=== PATIENT | female | born 1945 | race Hispanic/Latino ===

== ENCOUNTER 2017-09-15 10:54 | Observation (INO) | payer OTHER ==
[~2017-09-15] VITALS: Ht 162.6 cm; Wt 107.4 kg
[~2017-09-15 10:54] MED LIST: CANA1TAB PO; GLIP-162 PO; HYDR25TA PO; INSU100I21 SQ; LISI40TA4 PO; MECL-129 PO; METO50TA18 PO; SIMV5TAB6 PO
[2017-09-15 11:23] LABS: BASOPHILS % (AUTO) 0.9 % (0.0-5.0); EOSINOPHILS % (AUTO) 2.6 % (0.0-8.0); HEMATOCRIT 43.1 % (36-48); LYMPHOCYTES % (AUTO) 22.2 % (21.0-51.0); MEAN CORPUSCULAR HEMOGLOBIN 31.6 pg (27.0-33.0); MEAN CORPUSCULAR HGB CONC 34.7 g/dL (32.0-36.0); MEAN CORPUSCULAR VOLUME 91.1 fL (79-99); MONOCYTES % (AUTO) 6.4 % (3.0-13.0); NEUTROPHILS % (AUTO) 67.9 % (40.0-77.0); PLATELET COUNT (AUTO) 158 K/uL (130-400); RED BLOOD CELL COUNT(AUTO) 4.73 MIL/uL (4.00-5.50); WHITE BLOOD COUNT (AUTO) 8.4 K/uL (4.8-10.8)
[2017-09-15 11:45] LABS: INR 1.01 (0.85-1.15); PARTIAL THROMBOPLASTIN TIME 27.3 SEC (26.3-35.5); PROTHROMBIN TIME 10.6 SEC (9.6-11.6)
[2017-09-15 11:46] LABS: CREATINE KINASE MB 0.7 ng/mL (0.5-3.6)
[2017-09-15] MEDS ORDERED: CLOPIDOGREL BISULFATE 75 MG TAB ONE (12:08)
[2017-09-15 16:00] VITALS: BP 139/74
[2017-09-15] MEDS ORDERED: FURO20TA6 PO (16:05)
[2017-09-15] MEDS: INSULIN R PO SS1 SQ SCH ×2 (17:14→20:24)
[2017-09-15] MEDS: ENOXAPARIN SODIUM 40 MG/0.4 ML SYRINGE SQ SCH (17:24)
[2017-09-15 19:00] VITALS: BP 134/83
[2017-09-15] MEDS: METOPROLOL TARTRATE 50 MG TAB PO SCH (19:57)
[2017-09-15] MEDS: SIMVASTATIN 5 MG PO SCH (19:59)
[2017-09-15] MEDS: INSULIN GLARGINE 100 UNITS/ML 10 ML VIAL SQ SCH (20:23)
[2017-09-15] MEDS ORDERED: METOPROLOL TARTRATE 50 MG TAB PO SCH (21:00)
[2017-09-15] MEDS ORDERED: INSULIN DETEMIR 25 UNIT SQ SCH (21:00)
[2017-09-15] MEDS ORDERED: NON-FORMULARY MEDICATION 1 EACH (Simvastatin 5 MG) PO SCH (21:00)
[2017-09-16] VITALS (8 sets, daily range): BP systolic 100–137; BP diastolic 47–80
[2017-09-16 04:11] LABS: HEMATOCRIT 41.3 % (36-48); MEAN CORPUSCULAR HEMOGLOBIN 32.6 pg (27.0-33.0); MEAN CORPUSCULAR HGB CONC 35.5 g/dL (32.0-36.0); PLATELET COUNT (AUTO) 171 K/uL (130-400); RED BLOOD CELL COUNT(AUTO) 4.49 MIL/uL (4.00-5.50); RED CELL DISTRIBUTION WIDTH 13.7 % (11.0-15.5); WHITE BLOOD COUNT (AUTO) 8.5 K/uL (4.8-10.8)
[2017-09-16 04:14] LABS: CREATININE 0.8 mg/dL (0.5-1.5); POTASSIUM 3.2 mmol/L (3.5-5.1)
[2017-09-16 04:26] LABS: B-TYPE NATRIURETIC PEPTIDE 163 pg/mL (0-100)
[2017-09-16] MEDS: INSULIN R PO SS1 SQ SCH ×4 (06:01→20:52)
[2017-09-16] MEDS ORDERED: FUROSEMIDE 20 MG TABLET PO SCH (09:00)
[2017-09-16] MEDS ORDERED: POTASSIUM CHLORIDE 20MEQ/100ML 100 ML IV PRN (09:00)
[2017-09-16] MEDS ORDERED: POTASSIUM CHLORIDE 10% ELIXIR 20 MEQ/15 ML UDCUP PO PRN (09:00)
[2017-09-16] MEDS ORDERED: HYDROCHLOROTHIAZIDE 25 MG TABLET PO SCH (09:00)
[2017-09-16] MEDS ORDERED: GLIPIZIDE XL 5MG TAB PO SCH (09:00)
[2017-09-16] MEDS ORDERED: LIDOCAINE HCL-MPF 1% 2ML VIAL IVP PRN (09:00)
[2017-09-16] MEDS ORDERED: LISINOPRIL 40 MG TABLET PO SCH (09:00)
[2017-09-16] MEDS: LISINOPRIL 40 MG TABLET PO SCH (09:04)
[2017-09-16] MEDS: METOPROLOL TARTRATE 50 MG TAB PO SCH ×2 (09:04→20:45)
[2017-09-16] MEDS: FUROSEMIDE 20 MG TABLET PO SCH (09:04)
[2017-09-16] MEDS: GLIPIZIDE XL 5MG TAB PO SCH (09:04)
[2017-09-16] MEDS: ENOXAPARIN SODIUM 40 MG/0.4 ML SYRINGE SQ SCH (09:05)
[2017-09-16] MEDS ORDERED: FUROSEMIDE 10 MG/ML 2ML VIAL IV SCH (10:45)
[2017-09-16] MEDS ORDERED: POTASSIUM CHLORIDE 20 MEQ ERTAB PO SCH (10:45)
[2017-09-16] MEDS: SIMVASTATIN 5 MG PO SCH (20:45)
[2017-09-16] MEDS: INSULIN GLARGINE 100 UNITS/ML 10 ML VIAL SQ SCH (20:50)
[2017-09-17] VITALS: BP 122/75
[2017-09-17 04:00] VITALS: BP 132/57
[2017-09-17 05:19] LABS: CREATININE 0.8 mg/dL (0.5-1.5); POTASSIUM 3.4 mmol/L (3.5-5.1)
[2017-09-17] MEDS: INSULIN R PO SS1 SQ SCH (06:10)
[2017-09-17 08:00] VITALS: BP 112/70
[2017-09-17] MEDS ORDERED: RIVA20TA PO (08:09)
[2017-09-17] MEDS ORDERED: RIVAROXABAN 20 MG TABLET PO SCH (09:00)
[2017-09-17] MEDS: LISINOPRIL 40 MG TABLET PO SCH (11:03)
[2017-09-17] MEDS: FUROSEMIDE 20 MG TABLET PO SCH (11:03)
[2017-09-17] MEDS: METOPROLOL TARTRATE 50 MG TAB PO SCH (11:03)
[2017-09-17] MEDS: GLIPIZIDE XL 5MG TAB PO SCH (11:12)
[2017-09-17] MEDS: POTASSIUM CHLORIDE 20 MEQ ERTAB PO PRN ×2 (11:22→14:19)
[2017-09-17 12:40] VITALS: BP 116/69
[2017-09-17 16:19] VITALS: BP 110/63
== END 2017-09-17 17:10 | disposition home or self-care (01) ==
LOC: EDH 10:54 → EDHIP 14:25 → INTOOBSV 14:25 → 3AH 15:37
PROVIDERS: ADMIT Internal Medicine; ATTEND Internal Medicine
DX: I48.91 Unspecified atrial fibrillation (principal); M16.11 Unilateral primary osteoarthritis, right hip; E11.65 Type 2 diabetes mellitus with hyperglycemia; E66.01 Morbid (severe) obesity due to excess calories; E11.9 Type 2 diabetes mellitus without complications; Z68.41 Body mass index [BMI] 40.0-44.9, adult; I10 Essential (primary) hypertension; E78.5 Hyperlipidemia, unspecified; Z82.49 Family history of ischemic heart disease and other diseases of the circulatory system; Z90.49 Acquired absence of other specified parts of digestive tract; Z88.6 Allergy status to analgesic agent; Z96.653 Presence of artificial knee joint, bilateral; Z90.710 Acquired absence of both cervix and uterus; Z83.3 Family history of diabetes mellitus; Z79.899 Other long term (current) drug therapy; Z79.01 Long term (current) use of anticoagulants; E87.6 Hypokalemia
CPT/HCPCS: 36415 ×3; 71045; 80048 ×2; 82550; 82553; 82948 ×9; 83880; 84484; 85025; 85027; 85610; 85730; 93005; 93306; 96372 ×2; 96374; 97039; 97116; 97161; 99285; G0378 ×51; G8978; G8979; G8980; G8981; G8982; G8983; J1650 ×2; J1815 ×4; J1940

== ENCOUNTER 2019-02-26 18:09 | Observation (INO) | payer OTHER ==
[~2019-02-26] VITALS: Ht 152.4 cm; Wt 106.0 kg
[~2019-02-26 18:09] MED LIST changes: -CANA1TAB PO; -GLIP-162 PO; +GLIP5TAB11 PO; -INSU100I21 SQ; -MECL-129 PO; +METF500S7 PO; +METO50 PO; -METO50TA18 PO; +RIVA20TA PO; +SIMV5TAB58 PO; -SIMV5TAB6 PO; +TOLT2CAP21 PO
[2019-02-26 19:01] LABS: BASOPHILS % (AUTO) 0.6 % (0.0-5.0); EOSINOPHILS % (AUTO) 2.4 % (0.0-8.0); HEMATOCRIT 38.4 % (36-48); LYMPHOCYTES % (AUTO) 26.5 % (21.0-51.0); MEAN CORPUSCULAR HEMOGLOBIN 29.6 pg (27.0-33.0); MEAN CORPUSCULAR HGB CONC 33.2 g/dL (32.0-36.0); MONOCYTES % (AUTO) 7.5 % (3.0-13.0); PLATELET COUNT (AUTO) 123 K/uL (130-400); RED BLOOD CELL COUNT(AUTO) 4.31 MIL/uL (4.00-5.50); RED CELL DISTRIBUTION WIDTH 16.8 % (11.0-15.5); WHITE BLOOD COUNT (AUTO) 7.2 K/uL (4.8-10.8)
[2019-02-26 19:15] LABS: INR 1.48 (0.85-1.15); PARTIAL THROMBOPLASTIN TIME 40.4 SEC (26.3-35.5); PROTHROMBIN TIME 15.3 SEC (9.6-11.6)
[2019-02-26 19:18] LABS: CREATININE 0.9 mg/dL (0.5-1.5); POTASSIUM 3.5 mmol/L (3.5-5.1)
[2019-02-26 19:29] LABS: ALBUMIN 2.9 g/dL (3.5-5.0); BILIRUBIN,TOTAL 0.4 mg/dL (0.2-1.0); TOTAL PROTEIN, SERUM 7.8 g/dL (6.0-8.3)
[2019-02-26] MEDS ORDERED: ONDANSETRON HCL 4 MG/2 ML VIAL IVP PRN (20:45)
[2019-02-26] MEDS ORDERED: PANTOPRAZOLE 40 MG/VIAL IVP SCH (20:45)
[2019-02-26] MEDS ORDERED: ACETAMINOPHEN 325 MG TAB PO PRN (20:45)
[2019-02-26] MEDS: SODIUM CHLORIDE 0.9% 1000ML 1,000 ML IV SCH (20:45)
[2019-02-26] MEDS ORDERED: SODIUM CHLORIDE 0.9% 1000ML 1,000 ML IV ONE (21:27)
[2019-02-26] MEDS ORDERED: PEG 3350/NA SULF,BICARB,CL/KCL 4000 ML SOLN PO SCH (21:30)
[2019-02-26 21:45] VITALS: BP 147/76
--- NOTE | 2019-02-26 22:08 | NUR ---
BOWEL PREP Pt started on Golytely,pt aao x3 .Admitted from ER with rectal bleeding.
[2019-02-26] MEDS ORDERED: MONT10TA24 PO (22:16)
[2019-02-26] MEDS ORDERED: INSU3INS3 SQ (22:16)
--- NOTE | 2019-02-26 23:33 | NUR ---
BLOODY STOOL Pt having bright red stools.Cont on golytely prep for Colonosopy tomorrow.Robb well.
[2019-02-27] VITALS (21 sets, daily range): BP systolic 108–152; BP diastolic 54–80
[2019-02-27 00:17] LABS: HEMATOCRIT 39.8 % (36-48)
[2019-02-27 05:46] LABS: HEMATOCRIT 38.3 % (36-48); MEAN CORPUSCULAR HEMOGLOBIN 29.4 pg (27.0-33.0); MEAN CORPUSCULAR HGB CONC 33.1 g/dL (32.0-36.0); MEAN CORPUSCULAR VOLUME 88.8 fL (79-99); PLATELET COUNT (AUTO) 169 K/uL (130-400); RED BLOOD CELL COUNT(AUTO) 4.31 MIL/uL (4.00-5.50); WHITE BLOOD COUNT (AUTO) 9.8 K/uL (4.8-10.8)
[2019-02-27] MEDS: SODIUM CHLORIDE 0.9% 1000ML 1,000 ML IV SCH ×2 (05:51→16:45)
[2019-02-27 06:11] LABS: BILIRUBIN,TOTAL 0.6 mg/dL (0.2-1.0); CREATININE 1.1 mg/dL (0.5-1.5); MAGNESIUM 1.2 mg/dL (1.80-2.40); POTASSIUM 3.8 mmol/L (3.5-5.1); TOTAL PROTEIN, SERUM 7.8 g/dL (6.0-8.3)
--- NOTE | 2019-02-27 06:18 | NUR ---
STATUS Pt slept well.States stool less bloody now.
--- NOTE | 2019-02-27 06:32 | NUR ---
[employer] paged kervin rush np re mag level.
[2019-02-27] MEDS ORDERED: MAGNESIUM 2GM PREMIX 50ML 50 ML IV PRN ×2 (06:45→10:15)
[2019-02-27] MEDS: PANTOPRAZOLE 40 MG/VIAL IVP SCH ×2 (09:09→20:49)
[2019-02-27] MEDS ORDERED: POTASSIUM CHLORIDE 20MEQ/100ML 100 ML IV PRN (10:15)
[2019-02-27] MEDS ORDERED: HYDRALAZINE HCL 20 MG/ML VIAL IM PRN ×2 (10:30→17:15)
[2019-02-27] MEDS ORDERED: ONDANSETRON HCL 4 MG/2 ML VIAL IVP PRN (10:30)
--- NOTE | 2019-02-27 11:47 | NUR ---
DCP CM met with pt discussed dc plans. Pt is independent prior to admission, lives at home with son and daughter. Denies any equipments/services. Pt feels safe to go back home, son and daughter able to assist with transportation and needs as necessary. DC plan to home once stable. CM to cont to follow up. Addendum: 02/27/19 at 1148 by WILLIAM DELUNA LVN CM Amended: Links added.
[2019-02-27] MEDS ORDERED: PROPOFOL 10 MG/ML 20ML VIAL IV ONE ×2 (12:29→12:30)
[2019-02-27 14:27] LABS: HEMATOCRIT 34.9 % (36-48)
[2019-02-27 19:38] LABS: HEMATOCRIT 32.8 % (36-48)
[2019-02-27] MEDS: METOPROLOL TARTRATE 50 MG TAB PO SCH (20:49)
[2019-02-27] MEDS ORDERED: SIMVASTATIN 20 MG TABLET PO SCH (21:00)
[2019-02-28 00:04] VITALS: BP 149/60
[2019-02-28] MEDS: SODIUM CHLORIDE 0.9% 1000ML 1,000 ML IV SCH (02:45)
[2019-02-28 04:04] VITALS: BP 136/56
[2019-02-28 04:18] LABS: HEMOGLOBIN A1C 7.8 % (4.0-6.0)
[2019-02-28 04:19] LABS: CREATININE 0.8 mg/dL (0.5-1.5); MAGNESIUM 1.7 mg/dL (1.80-2.40); POTASSIUM 3.8 mmol/L (3.5-5.1)
[2019-02-28 06:30] LABS: HEMATOCRIT 35.6 % (36-48)
[2019-02-28 08:00] VITALS: BP 129/53
[2019-02-28] MEDS: PANTOPRAZOLE 40 MG/VIAL IVP SCH (09:01)
[2019-02-28] MEDS: METOPROLOL TARTRATE 50 MG TAB PO SCH (09:02)
[2019-02-28 11:15] VITALS: BP 142/75
--- NOTE | 2019-02-28 12:12 | NUR ---
DISCHARGE INSTRUCTION GIVEN AND PATIENT VERBALIZED UNDERSTANDING TELEMETRY UNIT NOTIFIED AND UNIT REMOVED IV REMOVED AND SITE DRESSED WITH PRESSURE DRESSING,PLACED FOLLOW-UP APPOINTMENT REVEIWED WITH PATIENT AND DAUGHTER NO QUESTIONS OR CONCERNS AT THIS TIME . PATIENT INSTRUCTED TO NOT TAKE [place] TILL CLEAR BY DR FERRO TO CONTINUE. PATIENT TAKING BY WHEELCHAIR TO [facility]OB[facility] AND LEFT WITH FAMILY FOR HOME
== END 2019-02-28 12:20 | disposition home or self-care (01) ==
LOC: EDH 18:09 → EDHIP 20:23 → 3AH 21:35 → 4DH 02-27 19:03
PROVIDERS: ADMIT Internal Medicine Critical Care Medicine; ATTEND Internal Medicine Critical Care Medicine
DX: K62.5 Hemorrhage of anus and rectum (principal); K64.8 Other hemorrhoids; I48.20 Chronic atrial fibrillation, unspecified; E11.9 Type 2 diabetes mellitus without complications; E78.5 Hyperlipidemia, unspecified; E66.9 Obesity, unspecified; I48.0 Paroxysmal atrial fibrillation; G47.33 Obstructive sleep apnea (adult) (pediatric); I11.9 Hypertensive heart disease without heart failure; Z90.49 Acquired absence of other specified parts of digestive tract; Z90.710 Acquired absence of both cervix and uterus; Z87.19 Personal history of other diseases of the digestive system; Z96.653 Presence of artificial knee joint, bilateral; Z68.42 Body mass index [BMI] 45.0-49.9, adult; Z79.84 Long term (current) use of oral hypoglycemic drugs; Z79.01 Long term (current) use of anticoagulants; Z79.899 Other long term (current) drug therapy; Z88.0 Allergy status to penicillin; Z88.5 Allergy status to narcotic agent; Z88.6 Allergy status to analgesic agent
CPT/HCPCS: 36415 ×3; 45378; 80048; 80053 ×2; 80061; 82270; 82948 ×6; 83036; 83735 ×2; 85014 ×5; 85018 ×5; 85025; 85027; 85610; 85730; 86850; 86900; 86901; 96374; 96375; 96376 ×2; 99284; A4600; A4615; C9113 ×3; G0378 ×39; J2704 ×2; J3475; J7030

== ENCOUNTER 2020-12-16 16:02 | Observation (INO) | payer OTHER ==
[~2020-12-16] VITALS: Ht 152.4 cm; Wt 106.1 kg
[2020-12-16 16:00] VITALS: BP 119/58
[~2020-12-16 16:02] MED LIST changes: +INSU3INS3 SQ; -LISI40TA4 PO; +LISI40TA9 PO; +MONT10TA32 PO; -RIVA20TA PO
[2020-12-16 16:06] VITALS: BP 134/74
[2020-12-16] MEDS ORDERED: MAGNESIUM 2GM PREMIX 50ML 50 ML IV PRN ×2 (17:30→22:00)
[2020-12-16] MEDS ORDERED: GLUCAGON 1MG KIT 1 MG ML IM PRN (17:30)
[2020-12-16] MEDS ORDERED: DEXTROSE 50%-WATER 50 ML DISP.SYRIN IV PRN (17:30)
[2020-12-16 17:38] LABS: CREATININE 1.4 mg/dL (0.5-1.5); MAGNESIUM 1.4 mg/dL (1.80-2.40)
[2020-12-16 17:43] LABS: POTASSIUM 2.9 mmol/L (3.5-5.1)
[2020-12-16] MEDS ORDERED: MAGNESIUM 4GM PREMIX 100ML 100 ML IV ONE (18:00)
[2020-12-16] MEDS ORDERED: KCL 20 MEQ ERTAB PO SCH (18:00)
[2020-12-16] MEDS ORDERED: LEVO25TA54 PO (19:16)
[2020-12-16] MEDS ORDERED: COLC0.6T73 PO (19:16)
[2020-12-16] MEDS ORDERED: TOLT2TAB20 PO (19:16)
[2020-12-16] MEDS ORDERED: MONT10TA32 PO (19:16)
[2020-12-16] MEDS ORDERED: DILT120T15 PO (19:16)
[2020-12-16] MEDS ORDERED: LISI10TA24 PO (19:16)
[2020-12-16] MEDS ORDERED: SIMV5TAB58 PO (19:16)
[2020-12-16] MEDS ORDERED: APIX5TAB PO (19:16)
[2020-12-16] MEDS ORDERED: FURO20TA4 PO (19:16)
[2020-12-16] MEDS ORDERED: METO50TA18 PO (19:16)
[2020-12-16] MEDS ORDERED: HYDR25TA PO (19:16)
[2020-12-16] MEDS ORDERED: TORS10TA18 PO (19:16)
[2020-12-16] MEDS ORDERED: POTA-79 PO (19:16)
[2020-12-16] MEDS ORDERED: GLIP5TAB11 PO (19:16)
[2020-12-16] MEDS ORDERED: KCL 20 MEQ ERTAB PO ONE (19:50)
[2020-12-16 20:00] VITALS: BP 129/72
[2020-12-16] MEDS: KCL 20 MEQ ERTAB PO SCH (20:01)
[2020-12-16] MEDS: APIXABAN 5 MG TABLET PO SCH (20:01)
[2020-12-16] MEDS: INSULIN R PO SS1 SQ SCH (20:02)
[2020-12-16] MEDS ORDERED: METOPROLOL TARTRATE 50 MG TAB PO SCH (21:00)
[2020-12-16 23:40] VITALS: BP 107/65
[2020-12-17] MEDS: KCL 20 MEQ ERTAB PO SCH ×2 (01:57→04:56)
[2020-12-17 04:00] VITALS: BP 125/69
[2020-12-17] MEDS: INSULIN R PO SS1 SQ SCH (05:18)
[2020-12-17 07:10] LABS: POTASSIUM 4.3 mmol/L (3.5-5.1)
[2020-12-17] MEDS ORDERED: METFORMIN HCL 500 MG TABLET PO SCH (08:00)
[2020-12-17 08:47] VITALS: BP 123/63
[2020-12-17] MEDS: APIXABAN 5 MG TABLET PO SCH (08:47)
[2020-12-17] MEDS ORDERED: TOLTERODINE TARTRATE 2 MG PO SCH (09:00)
[2020-12-17] MEDS ORDERED: LISINOPRIL 10 MG TABLET PO SCH (09:00)
[2020-12-17] MEDS ORDERED: MONTELUKAST SODIUM 10 MG TAB PO SCH (09:00)
[2020-12-17] MEDS ORDERED: METOPROLOL TARTRATE 50 MG TAB PO SCH (09:00)
[2020-12-17] MEDS ORDERED: GLIPIZIDE 5 MG TABLET PO SCH (09:00)
[2020-12-17] MEDS ORDERED: DILTIAZEM 120MG SR CAP PO SCH (09:00)
[2020-12-17] MEDS ORDERED: LEVOTHYROXINE 25 MCG TABLET PO SCH (09:00)
[2020-12-17] MEDS ORDERED: COLCHICINE 0.6 MG TABLET PO SCH (09:00)
[2020-12-17] MEDS ORDERED: SIMVASTATIN 10 MG TABLET PO SCH (21:00)
== END 2020-12-17 10:30 | disposition home or self-care (01) ==
LOC: EDH 16:02 → 4BH 16:03 → EDH 16:32
PROVIDERS: ADMIT Internal Medicine Cardiovascular Disease; ATTEND Internal Medicine Cardiovascular Disease
DX: E87.6 Hypokalemia (principal); E83.42 Hypomagnesemia; I10 Essential (primary) hypertension; I48.0 Paroxysmal atrial fibrillation; G47.33 Obstructive sleep apnea (adult) (pediatric); E66.01 Morbid (severe) obesity due to excess calories; E11.42 Type 2 diabetes mellitus with diabetic polyneuropathy; Z90.710 Acquired absence of both cervix and uterus; Z96.653 Presence of artificial knee joint, bilateral; Z98.41 Cataract extraction status, right eye; Z98.42 Cataract extraction status, left eye; Z90.49 Acquired absence of other specified parts of digestive tract; Z79.899 Other long term (current) drug therapy; Z98.890 Other specified postprocedural states; Z79.4 Long term (current) use of insulin; Z68.42 Body mass index [BMI] 45.0-49.9, adult
CPT/HCPCS: 36415; 80048; 82948; 83735; 96365; 96366; 96372; G0378; J1815; J3475